=== PATIENT | female | born 1965 | race Caucasian/White ===

== ENCOUNTER 2023-07-20 06:26 | Outpatient (OUT) | payer BC, SELFPAY ==
[2023-07-20 07:18] LABS: Estimated Average Glucose 117 mg/dL; Glycohemoglobin A1C 5.7 % (4.5-6.2)
[2023-07-20 07:31] LABS: Glucose 108 mg/dL (74-106); Thyroid Stimulating Hormone 3.085 uIU/mL (0.358-3.740)
[2023-07-21 10:13] LABS: Insulin 14.6 uIU/mL (2.6-24.9)
== END 2023-07-20 06:27 | disposition home or self-care (01) ==
LOC: LAB 06:30
PROVIDERS: PCP Internal Medicine; Visit Provider Internal Medicine
DX: E16.2 Hypoglycemia, unspecified (principal); R53.83 Other fatigue; R73.01 Impaired fasting glucose
CPT/HCPCS: 36415; 82947; 83036; 83525; 84443

== ENCOUNTER 2024-09-12 12:45 | Outpatient (OUT) | payer BC, SELFPAY ==
--- OUTSIDE RECORDS SUMMARY | 2024-09-12 12:55 | XMS_ITS | CCD ---
Author Organization [facility] Care Team Providers Care Miniature Set Builder Name Role Phone DO Sami Rosa Primary Care Provider [phone] MD Marko Lam Attending Provider MOE, DR SLATER Admitting Unavailable BALL, DR SLATER Attending Unavailable BALL, DR SLATER Primary Care Unavailable BALL, DR SLATER Consulting Unavailable BALL, DR SLATER Admitting Unavailable BALL, DR SLATER Attending Unavailable BALL, DR SLATER Primary Care Unavailable BALL, DR SLATER Consulting Unavailable BALL, DR SLATER Admitting Unavailable BALL, DR SLATER Attending Unavailable BALL, DR SLATER Primary Care Unavailable BALL, DR SLATER Consulting Unavailable Moe, Sami Unavailable DO Sami Rosa Primary Care Provider DO Sami Rosa Referring Provider [phone] Self, Referral Attending Provider Unavailable DO Sami Rosa Primary Care Provider Community, Outreach Attending Provider [phone] DO Sami Rosa Primary Care Provider Community, Outreach Attending Provider DO Sami Rosa Attending Provider [phone] Sami Rosa MD Primary Care Provider DO Sami Rosa Primary Care Provider DO Pan Granados Attending Provider [phone] HOLGER Patel Attending Provider [phone] NO, PCP Referring Unavailable Lauryn Patel Admitting Unavailable Lauryn Patel Attending Unavailable Moe, Sami Primary Care Unavailable Moe, Sami Primary Care Unavailable Sami Rosa Attending Unavailable Moe, Sami Admitting Unavailable VisciPan Attending Unavailable Moe, Sami Primary Care Unavailable ViscPan blackwood Admitting Unavailable Moe, Sami Primary Care Unavailable Community, Outreach Admitting Unavailable Community, Outreach Attending Unavailable VISCPAN Blackwood Attending Unavailable VADIM STEPHENSON Attending Unavailable VADIM STEPHENSON Referring Unavailable DO Sami Rosa Primary Care Provider [phone] Medications Current Medications Medication Drug Class(es) Dates Sig (Normalized) Sig (Original) Azithromycin (12 sources) Macrolide Antimicrobial Start: 08-03-2024 Azithromycin Active 0 PO daily 6 August 03, 2024 12:00am Take 2 on day 1 and then take 1 for the next 4 days (days 2-5) Start: 12-07-2023 End: 12-23-2023 Azithromycin Discontinued 25 0 MG PO daily 6 December 06, 2023 11:00pm December 23, 2023 12:17pm Take 2 tablets day one and then 1 for the next 4 days benzonatate 200 mg oral capsule (1 source) Non-narcotic Antitussive Start: 08-03-2024 take 200 mg by mouth three times daily Benzonatate Active 200 MG PO Three times daily 27 07August 03, 2024 12:00am doxycycline hyclate 100 mg oral capsule (19 sources) Tetracycline-class Drug Start: 12-08-2022 take 1 capsule by mouth every twelve hours Doxycycline Hyclate 100 MG 1 capsule Orally Twice a day for 7 days Aug, Active Esomeprazole (20 sources) Proton Pump Inhibitor Start: 02-16-2024 Esomeprazole Magnesium Active 0 .ROUTE .COMPLEX February 16, 2024 11:59am TAKE 1 CAPSULE DAILY ON AN EMPTY STOMACH FOLLOWED IN 30 MINUTES BY BREAKFAST Start: 02-16-2024 Esomeprazole M agnesium Active 0 .ROUTE .COMPLEX February 16, 2024 12:59pm TAKE 1 CAPSULE DAILY ON AN EMPTY STOMACH FOLLOWED IN 30 MINUTES BY BREAKFAST Start: 05-13-2022 End: 02-16-2024 take 40 mg by mouth once daily Esomeprazole Magnesium Discontinued 40 MG PO Daily May 12, 2022 11:00pm February 16, 2024 11:59am take 1 capsule by mo uth before mealtime esomeprazole (NexIUM) [address] capsule Take 20 mg by mouth in the morning. Take before meals. Do not open capsule.. 0 Active losartan potassium 50 mg oral tablet (20 sources) Angiotensin 2 Receptor Genia Start: 12-16-2023 End: 03-15-2024 Losartan Active 0 .ROUTE .COMPLEX March 154 6:00am TAKE 1 TABLET DAILY Start: 05-13-2022 End: 12-16-2023 take 50 mg by mouth once daily Losartan Discontinued 5 0 MG PO Daily May 12, 2022 11:00pm December 16, 2023 12:07pm paxlovid (300/100) 20 x 150 mg & 10 x 100mg tablet therapy pack (2 sources) Start: 09-25-2023 Paxlovid (300/100) 20 x 150 MG & 10 x 100MG as directed Orally bid for 5 days Aug, Active pravastatin sodium 20 mg oral tablet (8 sources) HMG-CoA Reductase Inhibitor take 1 tablet by mouth every twenty-four hours Pravastatin Sodium 20 MG 1 tablet Orally Once a day Active triamcinolone acetonide 1 mg/ml topical cream (1 source) Corticosteroid Start: 04-27-2023 triamcinolone (Kenalog) 0.1 % cream Indications: Rash and other nonspecific skin eruption Apply thin layer to affected areas on the chest twice a day as needed for flares 30 g 1 04/27/2023 Active Completed/Discontinued Medications Medication Drug Class(es) Dates Sig (Normalized) Sig (Original) amLODIPine 2.5 mg oral tablet (20 sources) Dihydropyridine Calcium Channel Genia Start: 05-13-2022 End: 12-07-2023 take 2.5 mg by mouth once daily Amlodipine Discontinued 2.5 MG PO Daily May 12, 2022 11:00pm December 07, 2023 8:01am atorvastatin 20 mg oral tablet (15 sources) HMG-CoA Reductase Inhibitor Start: 05-13-2022 End: 12-07-2023 take 20 mg by mouth once daily Atorvastatin Discontinued 20 MG PO Daily May 12, 2022 11:00pm December 07, 2023 8:01am B-12 - up to 1000 mcg (20 sources) Start: 11-06-2023 B-12 - up to 1000 mcg Oct, 1000 mcg Start: 10-05-2023 B-12 - up to 1 000 mcg Sep, 1 mL Start: 08-26-2023 B-12 - up to 1 000 mcg Jul, 1 mL Start: 07-22-2023 B-12 - up to 1 000 mcg Jun, 1000 mcg Start: 06-19-2023 B-12 - up to 1 000 mcg May, 1000 mcg Start: 05-12-2023 B-12 - up to 1 000 mcg Apr, 1000 mcg Start: 04-09-2023 B-12 - up to 1 000 mcg Mar, 1000 mcg Start: 02-25-2023 B-12 - up to 1 000 mcg January, 1000 mcg Start: 01-19-2023 B-12 - up to 1 000 mcg Dec, 1000 mcg Start: 12-02-2022 B-12 - up to 1 000 mcg Nov, 1000 mcg Start: 11-03-2022 B-12 - up to 1 000 mcg Oct, 1000 mcg Start: 09-30-2022 B-12 - up to 1 000 mcg Sep, 1000 mcg cefuroxime 500 mg oral tablet (18 sources) Cephalosporin Antibacterial Start: 10-09-2022 take 1 tablet by mouth every twelve hours Cefuroxime Axetil 500 MG 1 tablet Orally every 12 hrs for 7 days Sep, Not-Taking/PRN estradiol 0.5 mg oral tablet (11 sources) Estrogen Start: 12-07-2023 End: 08-03-2024 take 1 mg by mouth once daily Estradiol Discontinued 1 MG PO Daily December 06, 2023 11:00pm August 03, 2024 3:08pm mupirocin 0.02 mg/mg topical ointment (14 sources) RNA Synthetase Inhibitor Antibacterial Start: 12-07-2023 End: 12-07-2023 Mupirocin Discontinued 1 APPLIC TOPICAL Twice daily December 06, 2023 11:00pm December 07, 2023 1:00pm Start: 09-17-2023 Mupirocin 2 % 1 application Externally Twice a day for 7 days Aug, Active Problems Active Problems Problem Classification Problem Date Documented Date Episodic/Chronic Acute bronchitis (4 sources) Acute bronchitis due to other specified organisms; Translations: [Acute bronchitis] Onset: 02-11-2016 Episodic Asthma (20 sources) Exacerbation of mild persistent asthma; Translations: [Mild intermittent asthma with (acute) exacerbation] Chronic Cardiac dysrhythmias (1 source) Supraventricular tachycardia; Translations: [Supraventricular tachycardia] Chronic Chronic obstructive pulmonary disease and bronchiectasis (8 sources) Chronic bronchitis; Translations: [Unspecified chronic bronchitis] 05-30-2024 Chronic Chronic obstructive pulmonary disease and bronchiectasis (13 sources) Bronchitis; Translations: [Bronchitis, not specified as acute or chronic] 12-07-2023 Episodic Deficiency and other anemia (20 sources) Pernicious anemia; Translations: [Vitamin B12 deficiency anemia due to intrinsic factor deficiency] 12-07-2023 Episodic Deficiency and other anemia (14 sources) Vitamin B12 deficiency anemia due to intrinsic factor deficiency; Translations: [Pernicious anemia] Episodic Diabetes mellitus without complication (1 source) Impaired fasting glucose Episodic Disorders of lipid metabolism (20 sources) Pure hypercholesterolemia, unspecified; Translations: [Pure hypercholesterolemia] Onset: 07-04-2022 Chronic Esophageal disorders (20 sources) Gastroesophageal reflux disease; Translations: [Gastro-esophageal reflux disease without esophagitis] 05-12-2022 Chronic Essential hypertension (20 sources) Essential hypertension; Translations: [Essential (primary) hypertension] Chronic Immunizations and screening for infectious disease (1 source) Encounter for immunization; Translations: [ENCOUNTER FOR IMMUNIZATION] Onset: 04-18-2022 Episodic Malaise and fatigue (1 source) Other fatigue Episodic Open wounds of extremities (1 source) Laceration without foreign body of unspecified finger without damage to nail, initial encounter Episodic Other circulatory disease (19 sources) H/O: cardiovascular disease; Translations: [Personal history of other diseases of the circulatory system] Episodic Other circulatory disease (5 sources) Personal history of other diseases of the circulatory system; Translations: [Personal history of other diseases of circulatory system] Episodic Other circulatory disease (1 source) Orthostatic hypotension Episodic Other circulatory disease (4 sources) History of paroxysmal supraventricular tachycardia; Translations: [Personal history of other diseases of the circulatory system] 05-30-2024 Episodic Other connective tissue disease (19 sources) Spasm; Translations: [Cramp and spasm] Episodic Other connective tissue disease (7 sources) Swelling of right lower limb; Translations: [Other specified soft tissue disorders] 12-23-2023 Episodic Other connective tissue disease (7 sources) Pain in calf; Translations: [Pain in unspecified lower leg] 12-23-2023 Episodic Other connective tissue disease (6 sources) Pain in unspecified lower leg; Translations: [Pain in limb] Onset: 12-23-2023 4 Episodic Other connective tissue disease (5 sources) Other specified soft tissue disorders; Translations: [Swelling of limb] 12-23-2023 Episodic Other connective tissue disease (6 sources) Foot pain; Translations: [Pain in right foot] 12-23-2023 Episodic Other connective tissue disease (4 sources) Pain in right foot; Translations: [Pain in limb] 12-23-2023 Episodic Other endocrine disorders (6 sources) Hypoglycemia; Translations: [Hypoglycemia, unspecified] Chronic Other endocrine disorders (1 source) Hypoglycemia, unspecified Chronic Other hematologic conditions (20 sources) Macrocytosis - no anemia; Translations: [Other specified diseases of blood and blood-forming organs] 12-07-2023 Chronic Other hematologic conditions (1 source) Other specified diseases of blood and blood-forming organs; Translations: [Disease of blood AND/OR blood-forming organ] Chronic Other nervous system disorders (20 sources) Paresthesia; Translations: [Paresthesia of skin] 12-07-2023 Episodic Other nutritional; endocrine; and metabolic disorders (1 source) Obesity; Translations: [Obesity, unspecified] Onset: 07-04-2014 Chronic Other screening for suspected conditions (not mental disorders or infectious disease) (8 sources) Patient encounter status; Translations: [Encounter for screening mammogram for malignant neoplasm of breast] 05-30-2024 Episodic Other skin disorders (7 sources) Warm skin; Translations: [Other skin changes] 12-23-2023 Episodic Other skin disorders (6 sources) Other skin changes; Translations: [Other symptoms involving skin and integumentary tissues] Onset: 12-23-2023 12-23-2023 Episodic Other upper respiratory infections (4 sources) Acute maxillary sinusitis, unspecified; Translations: [Acute pharyngitis] Onset: 08-21-2014 Episodic Residual codes; unclassified (19 sources) Tobacco user; Translations: [Tobacco use] Episodic Skin and subcutaneous tissue infections (1 source) Cellulitis of right finger Episodic Substance-related disorders (20 sources) Tobacco user; Translations: [Nicotine dependence, cigarettes, uncomplicated] Onset: 06-13-2013 Chronic Unclassified (1 source) Encounter for screening mammogram for malignant neoplasm of breast; Translations: [Encounter for screening mammogram for malignant neoplasm of breast] Onset: 11-26-2023 Unclassified (1 source) Other forms of dyspnea; Translations: [Other forms of dyspnea] Onset: 08-13-2023 Past or Other Problems Problem Classification Problem Date Documented Date Episodic/Chronic Abdominal pain (1 source) Epigastric pain; Translations: [Epigastric pain] Onset: 11-03-2017 Episodic Esophageal disorders (10 sources) Esophageal disorders; Translations: [Gastroesophageal reflux disease with esophagitis without hemorrhage] Nonspecific chest pain (2 sources) Chest pain; Translations: [Chest pain, unspecified] Resolved: 03-16-2022 Episodic Other connective tissue disease (1 source) Disorder of soft tissue; Translations: [Other specified soft tissue disorders] Onset: 09-17-2015 Episodic Other connective tissue disease (1 source) Pain in limb; Translations: [Pain in right lower leg] Onset: 09-17-2015 Episodic Other lower respiratory disease (1 source) Dyspnea; Translations: [Other forms of dyspnea] Resolved: 03-16-2022 Episodic Other nutritional; endocrine; and metabolic disorders (1 source) Overweight; Translations: [Overweight] Onset: 08-06-2021 Resolved: 05-02-2022 Episodic Otitis media and related conditions (1 source) Acute secretory otitis media; Translations: [Other acute nonsuppurative otitis media, right ear] Onset: 07-10-2016 Episodic Poisoning by nonmedicinal substances (1 source) Toxic effect of venom; Translations: [Toxic effect of venom of bees, accidental (unintentional), initial encounter] Resolved: 04-18-2021 Episodic Viral infection (20 sources) COVID-19; Translations: [Disease caused by 2019-nCoV] Onset: 04-17-2022 Results Test Name Value Interpretation Reference Range Facility US venous duplex LE RTon US venous duplex LE RT [facility] [place] [address] Ultrasound Report Signed Patient: Connie Cee MR#: [id number] 3 : 1965 Acct:[id number] Age/Sex: 58 / F ADM Date: 12/23/23 Loc: Room: Type: [facility] Attending Dr: Lauryn Patel APRN, [employer] SUPERVISOR-C Ordering Provider: Lauryn Patel APRN, PARBOILER Date of Service: 12/23/23 US/US venous duplex LE RT: R23.8 - Other skin changes Copies to: Lauryn Patel APRN, CONTRERAS RIGHT LOWER EXTREMITY VENOUS DUPLEX INDICATION: Right leg pain Unilateral right lower extremity venous duplex Doppler study was obtained utilizing B-mode, color- flow and spectral Doppler. FINDINGS: The right common femoral, femoral, and popliteal veins showed adequate compressibility, color-flow and augmentation. The right posterior tibial and peroneal veins were compressible, as w ell as proximal greater saphenous vein. The contralateral left common femoral vein was compressible with color-flow and augmentation. US/US venous duplex LE RT IMPRESSION: NO EVIDENCE OF DEEP VENOUS THROMBOSIS IN THE RIGHT LOWER EXTREMITY. NO SUPERFICIAL THROMBOPHLEBITIS WAS NOTED. Impression dictated by: Dexter Rios M.D.12/24/2023 10:20 AM Dictation Location: [place] [address] Tech: Natty Alarcon Transcribed By: CONNER 12/24/23 1020 Dictated By: Dexter Rios MD 12/24/23 1017 Signed By: 12/24/23 1020 [facility] MM screening mammo BI w/CADo n 11-26-2023 MM screening mammo BI w/CAD [facility] [place] [address] Mammography Report Signed Patient: Connie Cee MR#: [id number] 3 : 1965 Acct:[id number] Age/Sex: 58 / F ADM Date: 11/26/23 Loc: [place] Room: Type: [facility] Attending Dr: Pan Granados DO Copies to: DO Pan Parks DO Ordering Provider: Pan Granados DO Date of Service: 11/26/23 MM/MM screening mammo BI w/CAD: Z12.31 CLINICAL DATA: Screening for malignancy. BILATERAL SCREENING MAMMOGRAMS - FULL FIELD DIGITAL WITH TOMOSYNTHESIS AND CAD Tomosynthesis craniocaudal and mediolateral oblique views of both breasts were obtained using low- dose digital technique. Comparison is made to prior studies from 11/25/2022, 11/12/2021, 05/29/2020, and 02/14/2019. This examination was reviewed with the aid of CAD. There are scattered fibroglandular densities. Benign-appearing lymph nodes are noted along the chest wall. There are a few punctate benign-appearing calcifications. There are no dominant masses, typically malignant calcifications or architectural distortion. There has been no significant interval change. MM/MM screening mammo BI w/CAD IMPRESSION: NO MAMMOGRAPHIC EVIDENCE OF MALIGNANCY. ROUTINE FOLLOW-UP IS RECOMMENDED IN ONE YEAR. RESULT CODE: 2 Benign Findings(s) DENSITY CODE: 2 (approximately 25-50% glandular) FOLLOW UP: 1YR The false-negative rate of mammography is approximately 10-percent. Management of a palpable abnormality must be based on clinical grounds. Patient was entered into a reminder system with a target due date for the next mammogram. Impression dictated by: Viral Montoya M.D.11/26/2023 11:53 AM Dictation Location: [facility] Transcribed By: CONNER 11/26/23 1153 Dictated By: Viral Montoya II, MD 11/26/23 1147 Signed By: 11/26/23 1153 Normal [facility] CT angio chest PE protocolon 08-13-2023 CT angio chest PE protocol [facility] [place] [address] CT Scan Report Signed Patient: Connie Cee MR#: [id number] 3 : 1965 Acct:[id number] Age/Sex: 58 / F ADM Date: 08/13/23 Loc: CT Room: Type: [facility] Attending Dr: Sami Rosa DO Copies to: Sami Rosa DO Ordering Provider: Sami Rosa DO Date of Service: 08/13/23 CT/CT angio chest PE protocol: R07.2, R06.09, Z72.0 CT ANGIOGRAM OF THE CHEST, PULMONARY EMBOLISM PROTOCOL: CLINICAL INFORMATION: Chest pain. COMPARISON: None TECHNIQUE: Following intravenous injection of contrast CT scans of the chest were obtained using pulmonary embolism protocol. Coronal and sagittal reconstructed images, as well as volume rendered CT pulmonary angiographic images were also submitted.The CT exam was performed using one or more of the following dose reduction techniques: Automated exposure control, adjustment of the MA and/or Kv according to patient size, or use of the iterative reconstruction technique. FINDINGS: Pulmonary Vasculature: Contrast bolus is adequate for evaluation of pulmonary embolism. Pulmonary trunk appears nondilated. No filling defects are identified to suggest pulmonary embolism. Mediastinum : Thoracic aorta is normal in caliber. No pericardial effusion. No lymphadenopathy. The esophagus is grossly unremarkable. Lungs: No focal consolidation, pneumothorax or pleural effusion. A few tree-in-bud/subpleura l nodules are noted likely related to postinflammatory/bron chiolitis changes. No suspicious pulmonary nodules noted. Upper abdomen: No acute findings Soft tissue/bones: Soft tissues surrounding the chest wall demonstrate no acute findings. Osseous structures demonstrate degenerative change. CT/CT angio chest PE protocol IMPRESSION: NO EVIDENCE OF ACUTE PULMONARY EMBOLISM OR PROCESS. Impression dictated by: Salazar Lee Jr., D.O.08/13/2023 1:51 PM Dictation Location: [place] [address] Transcribed By: [facility] 08/13/23 1351 Dictated By: Salazar Lee Jr, DO 08/13/23 1348 Signed By: 08/13/23 1351 Normal [facility] Alanine aminotransferase [En zymatic activity/volume] in Serum or PlasmaOrdered By: OUTREACH COMMUNITY on 07-04-2023 ALT [Catalytic activity/Vol] 29 U/L 7-52 [facility] Albumin [Mass/volume] in Ser um or Plasma by Bromocresol green (BCG) dye binding methoOrdered By: OUTREACH COMMUNITY on 07-04-2023 Albumin BCG dye [Mass/Vol] 4.6 g/dL 3.5-5.7 [facility] Alkaline phosphatase [Enzyma tic activity/volume] in Serum or PlasmaOrdered By: OUTREACH COMMUNITY on 07-04-2023 ALP [Catalytic activity/Vol] 82 U/L 34-104 [facility] Aspartate aminotransferase [ Enzymatic activity/volume] in Serum or PlasmaOrdered By: OUTREACH COMMUNITY on 07-04-2023 AST [Catalytic activity/Vol] 19 U/L 13-39 [facility] Bilirubin.total [Mass/volume ] in Serum or PlasmaOrdered By: OUTREACH COMMUNITY on 07-04-2023 Bilirubin [Mass/Vol] 0.4 mg/dL 0.3-1.0 [facility] CBC Without Differentialon 1 Erythrocyte distribution width (RBC) [Ratio] 13.7 % Normal 11.9-15.3 [facility] Comment on above: Performed By: #### C BCNOOUTREACH, OUTREACH CMP, OUTREACH LIPID #### [facility] [address] Hematocrit (Bld) [Volume fraction] 39.7 % Normal 34.0-46.4 [facility] Comment on above: Performed By: #### C BCNOOUTREACH, OUTREACH CMP, OUTREACH LIPID #### [facility] [address] Hemoglobin (Bld) [Mass/Vol] 13.1 g/dL Normal 11.8-15.4 [facility] Comment on above: Performed By: #### C BCNOOUTREACH, OUTREACH CMP, OUTREACH LIPID #### [address] MCH (RBC) [Entitic mass] 32.0 pg Normal 24.7-34.3 [facility] Comment on above: Performed By: #### C BCNOOUTREACH, OUTREACH CMP, OUTREACH LIPID #### [address] MCV (RBC) [Entitic vol] 96.9 fL Normal 80-100 [facility] Comment on above: Performed By: #### C BCNOOUTREACH, OUTREACH CMP, OUTREACH LIPID #### [address] Mean Corpuscular HGB Conc 33.1 g/dL Normal 32.0-35.0 [facility] Comment on above: Performed By: #### C BCNOOUTREACH, OUTREACH CMP, OUTREACH LIPID #### [address] Platelet mean volume (Bld) [Entitic vol] 8.3 fL Normal 6.3-10.7 [facility] Comment on above: Result Comment: PERF ORMED BY: [place] [address] PATHOLOGIST PAYROLL LEAD ANAT GÓMEZ M.D. Performed By: #### C BCNOOUTREACH, OUTREACH CMP, OUTREACH LIPID #### [facility] [address] Platelets (Bld) [#/Vol] 283 10*3/uL Normal 150-450 [facility] Comment on above: Performed By: #### C BCNOOUTREACH, OUTREACH CMP, OUTREACH LIPID #### [facility] [address] RBC (Bld) [#/Vol] 4.10 10*6/uL Normal 3.60-5.00 [facility] Comment on above: Performed By: #### C BCNOOUTREACH, OUTREACH CMP, OUTREACH LIPID #### [facility] [address] WBC (Bld) [#/Vol] 6.7 10*3/uL Normal 3.8-11.6 [facility] Comment on above: Performed By: #### C BCNOOUTREACH, OUTREACH CMP, OUTREACH LIPID #### [facility] [address] CMP Outreachon 07-04-2023 Albumin [Mass/Vol] 4.6 g/dL Normal 3.5-5.7 [facility] Comment on above: Performed By: #### C BCNOOUTREACH, OUTREACH CMP, OUTREACH LIPID #### [facility] [address] ALP [Catalytic activity/Vol] 82 U/L Normal 34-104 [facility] Comment on above: Performed By: #### C BCNOOUTREACH, OUTREACH CMP, OUTREACH LIPID #### [facility] [address] ALT [Catalytic activity/Vol] 29 U/L Normal 7-52 [facility] Comment on above: Performed By: #### C BCNOOUTREACH, OUTREACH CMP, OUTREACH LIPID #### [facility] [address] Anion gap [Moles/Vol] 12.0 mmol/L Normal 6.0-15.0 [facility] Comment on above: Performed By: #### C BCNOOUTREACH, OUTREACH CMP, OUTREACH LIPID #### [facility] [address] [place] [address] [place] AST [Catalytic activity/Vol] 19 U/L Normal 13-39 [facility] Comment on above: Performed By: #### C BCNOOUTREACH, OUTREACH CMP, OUTREACH LIPID #### [facility] [address] [place] [address] [place] Bilirubin [Mass/Vol] 0.4 mg/dL Normal 0.3-1.0 [facility] Comment on above: Performed By: #### C BCNOOUTREACH, OUTREACH CMP, OUTREACH LIPID #### [facility] [address] [place] [address] [place] Calcium [Mass/Vol] 10.0 mg/dL Normal 8.6-10.3 [facility] Comment on above: Performed By: #### C BCNOOUTREACH, OUTREACH CMP, OUTREACH LIPID #### [facility] [address] [place] [address] [place] Chloride [Moles/Vol] 102 mmol/L Normal 98-107 [facility] Comment on above: Performed By: #### C BCNOOUTREACH, OUTREACH CMP, OUTREACH LIPID #### [facility] [address] [place] [address] [place] CO2 [Moles/Vol] 30.3 mmol/L Normal 21.0-31.0 [facility] Comment on above: Performed By: #### C BCNOOUTREACH, OUTREACH CMP, OUTREACH LIPID #### [facility] [address] [place] [address] [place] Creatinine [Mass/Vol] 0.68 mg/dL Normal 0.60-1.20 [facility] Comment on above: Performed By: #### C BCNOOUTREACH, OUTREACH CMP, OUTREACH LIPID #### [facility] [address] [place] [address] [place] GFR/1.73 sq M.predicted MDRD (S/P/Bld) [Vol rate/Area] mL/min/{1.73_m2} Normal [facility] Comment on above: Performed By: #### C BCNOOUTREACH, OUTREACH CMP, OUTREACH LIPID #### [facility] [address] [place] [address] [place] Glucose [Mass/Vol] 108 mg/dL High 70-100 [facility] Comment on above: Result Comment: [facility] Glucose Reference Range is dependent on time and content of last meal. Glucose of more than 200 mg/dL in a nonstressed, ambulatory subject supports the diagnosis of Diabetes Mellitus. ADA recommended reference range Performed By: #### C BCNOOUTREACH, OUTREACH CMP, OUTREACH LIPID #### [facility] [address] [place] [address] [place] Potassium [Moles/Vol] 4.3 mmol/L Normal 3.5-5.1 [facility] Comment on above: Performed By: #### C BCNOOUTREACH, OUTREACH CMP, OUTREACH LIPID #### [facility] [address] [place] [address] [place] Protein [Mass/Vol] 7.5 g/dL Normal 6.4-8.9 [facility] Comment on above: Performed By: #### C BCNOOUTREACH, OUTREACH CMP, OUTREACH LIPID #### [facility] [address] [place] [address] [place] Sodium [Moles/Vol] 140 mmol/L Normal 136-145 [facility] Comment on above: Performed By: #### C BCNOOUTREACH, OUTREACH CMP, OUTREACH LIPID #### [facility] [address] [place] [address] [place] Urea nitrogen [Mass/Vol] 14 mg/dL Normal 7-25 [facility] Comment on above: Performed By: #### C BCNOOUTREACH, OUTREACH CMP, OUTREACH LIPID #### [facility] [address] [place] [address] [place] Calcium [Mass/volume] in Ser um or PlasmaOrdered By: OUTREACH COMM[facility]ITY on 07-04-2023 Calcium [Mass/Vol] 10.0 mg/dL 8.6-10.3 [facility] Carbon dioxide, total [Moles /volume] in Serum or PlasmaOrdered By: OUTREACH COMMUNITY on 07-04-2023 CO2 [Moles/Vol] 30.3 mmol/L 21.0-31.0 [facility] Chloride [Moles/volume] in S kim or PlasmaOrdered By: OUTREACH COMMUNITY on 07-04-2023 Chloride [Moles/Vol] 102 mmol/L 98-107 [facility] Cholesterol [Mass/volume] in Serum or PlasmaOrdered By: OUTREACH COMM[facility]ITY on 07-04-2023 Cholesterol [Mass/Vol] 233 mg/dL 140-200 [facility] Comment on above: Chol less than 200 m g/dl low riskChol 201-239 mg/dl borderline riskChol 240 mg/dl and greater high risk Cholesterol in LDL Calc [Mas s/Vol]Ordered By: [facility]REACH [facility] on 07-04-2023 Cholesterol in LDL [Mass/Vol] 132 mg/dL 0-100 [facility] Comment on above: LDL ATP III CLASSIFI CATIONLDL less than 100 mg/dL OptimalLDL 100-129 mg/dL Near or above optimalLDL 130-159 mg/dL Borderline highLDL 160-189 mg/dL HighLDL greater than 189 mg/dL Very high Cholesterol in VLDL Calc [Ma ss/Vol]Ordered By: OUTREACH [facility] on 07-04-2023 Cholesterol in VLDL [Mass/Vol] 47 mg/dL [facility] Creatinine [Mass/volume] in Serum or PlasmaOrdered By: OUTREACH [facility] on 07-04-2023 Creatinine [Mass/Vol] 0.68 mg/dL 0.60-1.20 [facility] Erythrocyte distribution wid th Auto (RBC) [Ratio]Ordered By: [facility]REACH [facility] on 07-04-2023 Erythrocyte distribution width (RBC) [Ratio] 13.7 % 11.9-15.3 [facility] Glucose [Mass/volume] in Ser um or PlasmaOrdered By: OUTREACH COMM[facility]ITY on 07-04-2023 Glucose [Mass/Vol] 108 mg/dL 70-100 [facility] Comment on above: ADA recommended refe rence rangeRandom Glucose Reference Range is dependent on time and content of last meal. Glucose of more than 200 mg/dL in a nonstressed, ambulatory subject supports the diagnosis of Diabetes Mellitus. Hematocrit Auto (Bld) [Volum e fraction]Ordered By: OUTREACH [facility]ITY on 07-04-2023 Hematocrit (Bld) [Volume fraction] 39.7 % 34.0-46.4 [facility] Hemoglobin [Mass/volume] in BloodOrdered By: [facility] on 07-04-2023 Hemoglobin (Bld) [Mass/Vol] 13.1 g/dL 11.8-15.4 [facility] Leukocytes [#/volume] correc gigi for nucleated erythrocytes in Blood by Automated counOrdered By: [facility] on 07-04-2023 WBC corrected for nucl RBC Auto (Bld) [#/Vol] 6.7 10*3/uL 3.8-11.6 [facility] Lipid Profile [facility] Cholesterol [Mass/Vol] 233 mg/dL High 140-200 [facility] Comment on above: Result Comment: Chol less than 200 mg/dl low risk Chol 201-239 mg/dl borderline risk Chol 240 mg/dl and greater high risk Performed By: #### C BCNOOUTREACH, OUTREACH CMP, OUTREACH LIPID #### [facility] [address] Cholesterol in HDL [Mass/Vol] 53 mg/dL Normal 23-92 [facility] Comment on above: Result Comment: HDL CHOL ATP-III CLASSIFICATION Cardiovascular Risk HDL > or equal to 60 mg/dL LOW HDL < 40 mg/dL HIGH Performed By: #### C BCNOOUTREACH, OUTREACH CMP, OUTREACH LIPID #### [facility] [address] [place] [id number] [facility] Cholesterol.total/Choles terol in HDL [Mass ratio] 4.4 {ratio} Normal <5.0 [facility] Comment on above: Result Comment: PERF ORMED BY: [place] [address] PATHOLOGIST [employer] ANAT GÓMEZ M.D. Performed By: #### C BCNOOUTREACH, OUTREACH CMP, OUTREACH LIPID #### [facility] [address] [place] [id number] [facility] LDL Cholesterol,Calculated 132 mg/dL High 0-100 [facility] Comment on above: Result Comment: LDL ATP III CLASSIFICATION LDL less than 100 mg/dL Optimal LDL 100-129 mg/dL Near or above optimal LDL 130-159 mg/dL Borderline high LDL 160-189 mg/dL High LDL greater than 189 mg/dL Very high Performed By: #### C TERE, OUTREACH CMP, OUTREACH LIPID #### [facility] [address] Triglyceride w/Reflex 238 mg/dL High 0-149 [facility] Comment on above: Result Comment: TRIG ATP III CLASSIFICATION TRIG less than 150 mg/dL Normal TRIG 150-199 mg/dL Borderline high TRIG 200-500 mg/dL High TRIG greater than 500 mg/dL Very high Standard traceable to the Center for Disease Conrtrol and Prevention (CDC) test method. Performed By: #### C TERE, OUTREACH CMP, OUTREACH LIPID #### [facility] [address] VLDL CHOLESTEROL 47 mg/dL Normal [facility] Comment on above: Performed By: #### C TERE, OUTREACH CMP, OUTREACH LIPID #### [facility] [address] MCH Auto (RBC) [Entitic mass ]Ordered By: [facility] on 07-04-2023 MCH (RBC) [Entitic mass] 32.0 pg 24.7-34.3 [facility] MCHC Auto (RBC) [Mass/Vol]Or dered By: [facility] on 07-04-2023 MCHC (RBC) [Mass/Vol] 33.1 g/dL 32.0-35.0 [facility] MCV Auto (RBC) [Entitic vol] Ordered By: [facility] on 07-04-2023 MCV (RBC) [Entitic vol] 96.9 fL 80-100 [facility] No Panel InformationOrdered By: [facility] on 07-04-2023 Estimated GFR (CKD-EPI) > 60.0 mL/Min [facility] Creatinine Clearance (Chem N/A [facility] Platelet mean volume Auto (B ld) [Entitic vol]Ordered By: [facility] on 07-04-2023 Platelet mean volume (Bld) [Entitic vol] 8.3 fL 6.3-10.7 [facility] Platelets Auto (Bld) [#/Vol] Ordered By: [facility] on 07-04-2023 Platelets (Bld) [#/Vol] 283 10*3/uL 150-450 [facility] Potassium [Moles/volume] in Serum or PlasmaOrdered By: [facility]REACH [facility] on 07-04-2023 Potassium [Moles/Vol] 4.3 mmol/L 3.5-5.1 [facility] Protein [Mass/volume] in Ser um or PlasmaOrdered By: OUTREACH [facility] on 07-04-2023 Protein [Mass/Vol] 7.5 g/dL 6.4-8.9 [facility] RBC Auto (Bld) [#/Vol]Ordere d By: OUTREACH [facility] on 07-04-2023 RBC (Bld) [#/Vol] 4.10 10*6/uL 3.60-5.00 [facility] Serum or plasma anion gap de terminationOrdered By: OUTREACH COMMUNITY on 07-04-2023 Anion gap [Moles/Vol] 12.0 mmol/L 6.0-15.0 [facility] Serum or plasma high density lipoprotein (HDL) cholesterol measurementOrdered By: OUTREACH [facility] on 07-04-2023 Cholesterol in HDL [Mass/Vol] 53 mg/dL 23-92 [facility] Comment on above: HDL CHOL ATP-III CLA SSIFICATION Cardiovascular RiskHDL > or equal to 60 mg/dL LOWHDL < 40 mg/dL HIGH Serum or plasma total choles terol/high density lipoprotein (HDL) cholesterol mass ratOrdered By: OUTREACH [facility] on 07-04-2023 Cholesterol.total/Choles terol in HDL [Mass ratio] 4.4 {ratio} <5.0 [facility] Sodium [Moles/volume] in Ser um or PlasmaOrdered By: OUTREACH [facility] on 07-04-2023 Sodium [Moles/Vol] 140 mmol/L 136-145 [facility] Triglyceride [Mass/volume] i n Serum or PlasmaOrdered By: OUTREACH COMMUNITY on 07-04-2023 Triglyceride [Mass/Vol] 238 mg/dL 0-149 [facility] Comment on above: TRIG ATP III CLASSIF ICATIONTRIG less than 150 mg/dL NormalTRIG 150-199 mg/dL Borderline highTRIG 200-500 mg/dL High TRIG greater than 500 mg/dL Very highStandard traceable to the Center for Disease Conrtrol and Prevention (CDC) test method. Urea nitrogen [Mass/volume] in Serum or PlasmaOrdered By: OUTREACH COMMUNITY on 07-04-2023 Urea nitrogen [Mass/Vol] 14 mg/dL 7-25 [facility] DIRECT LDLon 07-04-2022 Cholesterol in LDL [Mass/Vol] 112 mg/dL Normal [facility] Comment on above: Performed By: #### D LDL, ALT #### [facility] [address] [place] [address] [address] Netta Judd DLDL NORMAL SEE BELOW Normal [facility] Comment on above: Result Comment: <100 mg/dl OPTIMAL 100 - 129 mg/dl NEAR OR ABOVE OPTIMAL 130 - 159 mg/dl BORDERLINE HIGH 160 - 189 mg/dl HIGH >190 mg/dl VERY HIGH Performed By: #### D LDL, ALT #### [facility] [address] [place] [address] [address] Netta Judd SGPTon 07-04-2022 ALT [Catalytic activity/Vol] 36 U/L Normal 14-59 [facility] Comment on above: Performed By: #### D LDL, ALT #### [facility] [address] [place] [address] Dr. Netta Judd COVID-19 Positive/NegativeOr dered By: Marko Lam on 05-09-2022 SARS-CoV-2 (COVID-19) N gene RADU+probe Ql (Resp) Negative Negative [facility] Comment on above: Testing for SARS-CoV -2 by RT-PCR This test was developed and its performance characteristics determined by [employer] and validated at the [facility]. This test has not been FDA cleared or approved. This test has been authorized by FDA under an Emergency Use Authorization (EUA). This test has been validated in accordance with the FDA's Guidance Document (Policy for Diagnostics Testing in Laboratories Certified to Perform High Complexity Testing under CLIA prior to Emergency Use Authorization for Coronavirus Disease-2019 during the Public Health Emergency) issued on December 29, 2019. This test is only authorized for the duration of time the declaration that circumstances exist justifying the authorization of the emergency use of in vitro diagnostic tests for detection of SARS-CoV-2 virus and/or diagnosis of COVID-19 infection under section 564(b)(1) of the Act, 21 U.S.C. 360bbb-3(b)(1), unless the authorization is terminated or revoked sooner. CBC AUTO DIFFon 05-02-2022 BASO # 0.0 103/ul Normal 0.0-0.1 [facility] Comment on above: Performed By: #### C BC #### [facility] [address] [place] [address] Dr. Netta Judd Basophils/100 WBC (Bld) 0.6 % Normal 0.2-2.0 [facility] Comment on above: Performed By: #### C BC #### [facility] [address] [place] [address] Dr. Netta Judd EO # 0.2 103/ul Normal 0.0-0.7 [facility] Comment on above: Performed By: #### C BC #### [facility] [address] [place] [address] Dr. Netta Judd Eosinophils/100 WBC (Bld) 3.1 % Normal 0.9-7.0 [facility] Comment on above: Performed By: #### C BC #### [facility] [address] [place] [address] Dr. Netta Judd Erythrocyte distribution width (RBC) [Ratio] 13.6 % Normal 11.0-15.0 [facility] Comment on above: Performed By: #### C BC #### [facility] [address] [place] [address] Dr. Netta Judd Hematocrit (Bld) [Volume fraction] 39.3 % Normal 36.0-48.0 [facility] Comment on above: Performed By: #### C BC #### [facility] [address] [place] [address] Dr. Netta Judd Hemoglobin (Bld) [Mass/Vol] 12.8 g/dL Normal 12.0-16.0 [facility] Comment on above: Performed By: #### C BC #### [facility] [address] [place] [address] Dr. Netta Judd IG # 0.03 10e3/ul Normal 0.00-0.03 [facility] Comment on above: Performed By: #### C BC #### [facility] [address] [place] [address] Dr. Netta Judd IG % 0.5 % Normal 0.0-0.5 [facility] Comment on above: Performed By: #### C BC #### [facility] [address] [place] [address] Dr. Netta Judd LYMPH # 2.0 103/ul Normal 1.2-3.8 [facility] Comment on above: Performed By: #### C BC #### [facility] [address] [place] [address] Dr. Netta Judd Lymphocytes/100 WBC (Bld) 32.7 % Normal 20.5-60.0 [facility] Comment on above: Performed By: #### C BC #### [facility] [address] [place] [address] Dr. Netta Judd MANUAL DIFF REQ NO Normal [facility] Comment on above: Performed By: #### C BC #### [facility] [address] [place] [address] Dr. Netta Judd MCH (RBC) [Entitic mass] 31.8 pg Normal 26.7-34.0 [facility] Comment on above: Performed By: #### C BC #### [facility] [address] [place] [address] Dr. Netta Judd MCHC (RBC) [Mass/Vol] 32.6 g/dL Normal 29.9-35.2 [facility] Comment on above: Performed By: #### C BC #### [facility] [address] [place] [address] Dr. Netta Judd MCV (RBC) [Entitic vol] 97.5 fL Normal 81.0-99.0 [facility] Comment on above: Performed By: #### C BC #### [facility] [address] [place] [address] [address] Netta Judd MONO # 0.5 103/ul Normal 0.3-0.8 [facility] Comment on above: Performed By: #### C BC #### [facility] [address] [place] [address] Dr. Netta Judd Monocytes/100 WBC (Bld) 7.6 % Normal 1.7-12.0 [facility] Comment on above: Performed By: #### C BC #### [facility] [address] [place] [address] Dr. Netta Judd NEUT # 3.4 103/ul Normal 1.4-6.5 [facility] Comment on above: Performed By: #### C BC #### [facility] [address] [place] [address] Dr. Netta Judd Neutrophils/100 WBC (Bld) 55.5 % Normal 43.0-75.0 [facility] Comment on above: Performed By: #### C BC #### [facility] [address] [place] [address] Dr. Netta Judd Platelet mean volume (Bld) [Entitic vol] 9.7 fL Normal 9.5-13.5 [facility] Comment on above: Performed By: #### C BC #### [facility] [address] [place] [address] Dr. Netta Judd PLT 249 103/ul Normal 150-450 [facility] Comment on above: Performed By: #### C BC #### [facility] [address] [place] [address] Dr. Netta Judd RBC 4.03 106/ul Critically low 4.20-5.40 [facility] Comment on above: Performed By: #### C BC #### [facility] [address] [place] [address] Dr. Netta Judd WBC 6.2 103/ul Normal 4.0-11.0 [facility] Comment on above: Performed By: #### C BC #### [facility] [address] [place] [address] Dr. Netta Judd LIPID PROFILEon 05-02-2022 CHOL-HDL RATIO NORM SEE BELOW Normal [facility] Comment on above: Result Comment: 3.3 - 4.4 LOW RISK 4.4 - 7.1 AVERAGE RISK 7.1 - 11.0 MODERATE RISK >11.0 HIGH RISK Performed By: #### C MP, TSH, LIPID #### [facility] [address] [place] [address] [address] Netta Judd Cholesterol [Mass/Vol] 231 mg/dL Critically high <=200 [facility] Comment on above: Performed By: #### C MP, TSH, LIPID #### [facility] [address] [place] [address] [address] Netta Judd Cholesterol in HDL [Mass/Vol] 41 mg/dL Normal 40-60 [facility] Comment on above: Performed By: #### C MP, TSH, LIPID #### [facility] [address] [place] [address] [address] Netta Judd Cholesterol in LDL [Mass/Vol] 137.2 mg/dL Normal [facility] Comment on above: Performed By: #### C MP, TSH, LIPID #### [facility] [address] [place] [address] [address] Netta Judd Cholesterol.total/Choles terol in HDL [Mass ratio] 5.6 {ratio} Normal [facility] Comment on above: Performed By: #### C MP, TSH, LIPID #### [facility] [address] [place] [address] [address] Netta Judd HDL NORMAL > or = 60 mg/dl - LO W CARDIOVASCULAR RISK <40 mg/dl - HIGH CARDIOVASCULAR RISK Normal [facility] Comment on above: Performed By: #### C MP, TSH, LIPID #### [facility] [address] [address] [address] Netta Judd LDL CALC NORMAL SEE BELOW Normal [facility] Comment on above: Result Comment: <100 mg/dl OPTIMAL 100 - 129 mg/dl NEAR OR ABOVE OPTIMAL 130 - 159 mg/dl BORDERLINE HIGH 160 - 189 mg/dl HIGH >190 mg/dl VERY HIGH Performed By: #### C MP, TSH, LIPID #### [facility] [address] [place] [address] Dr. Netta Judd Triglyceride [Mass/Vol] 264 mg/dL Critically high <=150 [facility] Comment on above: Performed By: #### C MP, TSH, LIPID #### [facility] [address] [place] [address] Dr. Netta Judd VLDL CALC 52.8 mg/dL Normal [facility] Comment on above: Performed By: #### C MP, TSH, LIPID #### [facility] [address] [place] [address] Dr. Netta Judd PROF 14(COMP METB)on 022 Albumin [Mass/Vol] 3.6 g/dL Normal 3.4-5.[address] [facility] Comment on above: Performed By: #### C MP, TSH, LIPID #### [facility] [address] [place] [address] Dr. Netta Judd Albumin/Globulin [Mass ratio] 1.0 {ratio} Normal [facility] Comment on above: Performed By: #### C MP, TSH, LIPID #### [facility] [address] [place] [address] Dr. Netta Judd ALP [Catalytic activity/Vol] 83 U/L Normal 46-116 [facility] Comment on above: Performed By: #### C MP, TSH, LIPID #### [facility] [address] [place] [address] Dr. Netta Judd ALT [Catalytic activity/Vol] 51 U/L Normal 14-59 [facility] Comment on above: Performed By: #### C MP, TSH, LIPID #### [facility] [address] [place] [address] Dr. Netta Judd Anion gap [Moles/Vol] 13.4 mmol/L Normal [facility] Comment on above: Performed By: #### C MP, TSH, LIPID #### [facility] [address] [place] [address] Dr. Netta Judd AST [Catalytic activity/Vol] 22 U/L Normal 15-37 [facility] Comment on above: Performed By: #### C MP, TSH, LIPID #### [facility] [address] [address] [address] Netta Judd Bilirubin [Mass/Vol] 0.3 mg/dL Normal 0.2-1.0 [facility] Comment on above: Performed By: #### C MP, TSH, LIPID #### [facility] [address] [address] [address] Netta Judd Calcium [Mass/Vol] 8.9 mg/dL Normal 8.5-10.[address] [facility] Comment on above: Performed By: #### C MP, TSH, LIPID #### [facility] [address] [address] [address] Netta Judd Chloride [Moles/Vol] 105 mmol/L Normal 98-107 [facility] Comment on above: Performed By: #### C MP, TSH, LIPID #### [facility] [address] [place] [address] Dr. Netta Judd CO2 [Moles/Vol] 29.5 mmol/L Normal 21.0-32.0 [facility] Comment on above: Performed By: #### C MP, TSH, LIPID #### [facility] [address] [place] [address] Dr. Netta Judd Creatinine [Mass/Vol] 0.68 mg/dL Normal 0.55-1.02 [facility] Comment on above: Performed By: #### C MP, TSH, LIPID #### [facility] [address] [place] [address] Dr. Netta Judd EGFR-AF NICARAGUAN >60 Normal >=60 [facility] Comment on above: Performed By: #### C MP, TSH, LIPID #### [facility] [address] [place] [address] Dr. Netta Judd EGFR-NON AF NICARAGUAN >60 Normal >=60 [facility] Comment on above: Performed By: #### C MP, TSH, LIPID #### [facility] [address] [place] [address] Dr. Netta Judd Globulin (S) [Mass/Vol] 3.5 g/dL Normal [facility] Comment on above: Performed By: #### C MP, TSH, LIPID #### [facility] [address] [place] [address] Dr. Netta Judd Glucose [Mass/Vol] 108 mg/dL Critically high 74-106 [facility] Comment on above: Performed By: #### C MP, TSH, LIPID #### [facility] [address] [place] [address] Dr. Netta Judd Potassium [Moles/Vol] 3.9 mmol/L Normal 3.5-5.1 [facility] Comment on above: Performed By: #### C MP, TSH, LIPID #### [facility] [address] [place] [address] Dr. Netta Judd Protein [Mass/Vol] 7.1 g/dL Normal 6.4-8.[address] [facility] Comment on above: Performed By: #### C MP, TSH, LIPID #### [facility] [address] [place] [address] Dr. Netta Judd Sodium [Moles/Vol] 144 mmol/L Normal 136-[address] [facility] Comment on above: Performed By: #### C MP, TSH, LIPID #### [facility] [address] [place] [address] Dr. Netta Judd Urea nitrogen [Mass/Vol] 13.0 mg/dL Normal 7.0-18.0 [facility] Comment on above: Performed By: #### C MP, TSH, LIPID #### [facility] [address] [place] [address] Dr. Netta Judd Urea nitrogen/Creatinine [Mass ratio] 19.1 mg/mg Normal [facility] Comment on above: Performed By: #### C MP, TSH, LIPID #### [facility] [address] [place] [address] Dr. Netta Judd TSHon 05-02-2022 TSH 1.683 uIU/mL Normal 0.358-3.740 [facility] Comment on above: Performed By: #### C MP, TSH, LIPID #### [facility] [address] [place] [address] Dr. Netta Judd Vital Signs Date Time Vital Sign Value Performing Clinician Facility 08-03-2024 15:02-0500 Body height 167.64 cm [facility] 08-03-2024 15:02-0500 Body mass index (BMI) [Ratio] 26.8 kg/m2 [facility] 08-03-2024 15:02-0500 Body temperature 98.1 [degF] [facility] 08-03-2024 15:02-0500 Body weight 75.35 kg [facility] 08-03-2024 15:02-0500 Diastolic blood pressure 100 mm[Hg] [facility] 08-03-2024 15:02-0500 Heart rate 124 /min [facility] 08-03-2024 15:02-0500 SaO2% (BldA) [Mass fraction] 96 % [facility] 08-03-2024 15:02-0500 Systolic blood pressure 144 mm[Hg] [facility] 06-24-2024 14:16-0400 Body height 167.64 cm [facility] 06-24-2024 14:16-0400 Body mass index (BMI) [Ratio] 26.4 kg/m2 [facility] 06-24-2024 14:16-0400 Body weight 74.38 kg [facility] 06-24-2024 14:16-0400 Diastolic blood pressure 96 mm[Hg] [facility] 06-24-2024 14:16-0400 Heart rate 93 /min [facility] 06-24-2024 14:16-0400 Systolic blood pressure 144 mm[Hg] [facility] 12-23-2023 13:17-0400 Body height 167.64 cm DO Sami Ball Work Phone: [facility] 12-23-2023 13:17-0400 Body mass index (BMI) [Ratio] 26.9 kg/m2 DO Sami Ball Work Phone: [facility] 12-23-2023 13:17-0400 Body weight 75.74 kg DO Sami Ball Work Phone: [facility] 12-07-2023 13:52-0400 Body height 167.64 cm DO Sami Ball Work Phone: [facility] 12-07-2023 13:52-0400 Body mass index (BMI) [Ratio] 27.1 kg/m2 DO Sami Ball Work Phone: [facility] 12-07-2023 13:52-0400 Body weight 76.2 kg DO Sami Ball Work Phone: [facility] 12-07-2023 13:52-0400 Diastolic blood pressure 100 mm[Hg] DO Sami Ball Work Phone: [facility] 12-07-2023 13:52-0400 Heart rate 117 /min DO Sami Ball Work Phone: [facility] 12-07-2023 13:52-0400 SaO2% (BldA) [Mass fraction] 97 % DO Sami Ball Work Phone: [facility] 12-07-2023 13:52-0400 Systolic blood pressure 172 mm[Hg] DO Sami Ball Work Phone: [facility] 09-17-2023 10:15-0500 Body height 167.64 cm Sami Ball Other [employer] Other 09-17-2023 10:15-0500 Body mass index (BMI) [Ratio] 26.63 kg/m2 Sami Ball Other [employer] Other 09-17-2023 10:15-0500 Body weight 74.84 kg Sami Ball Other [employer] Other 09-17-2023 10:15-0500 Diastolic blood pressure 89 mm[Hg] Sami Ball Other [employer] Other 09-17-2023 10:15-0500 Respiratory rate 12 /min Sami Ball Other [employer] Other 09-17-2023 10:15-0500 Systolic blood pressure 136 mm[Hg] Sami Ball Other [employer] Other 07-17-2023 10:15-0400 Body height 167.64 cm Sami Ball Other [employer] Other 07-17-2023 10:15-0400 Body mass index (BMI) [Ratio] 27.37 kg/m2 Sami Ball Other [employer] Other 07-17-2023 10:15-0400 Body weight 76.93 kg Sami Ball Other [employer] Other 07-17-2023 10:15-0400 Diastolic blood pressure 92 mm[Hg] Sami Ball Other [employer] Other 07-17-2023 10:15-0400 Respiratory rate 12 /min Sami Ball Other [employer] Other 07-17-2023 10:15-0400 Systolic blood pressure 139 mm[Hg] Sami Ball Other [employer] Other 05-28-2023 14:30-0400 Body height 167.64 cm Sami Ball Other [employer] Other 05-28-2023 14:30-0400 Body mass index (BMI) [Ratio] 27.44 kg/m2 Sami Ball Other [employer] Other 05-28-2023 14:30-0400 Body weight 77.11 kg Sami Ball Other [employer] Other 05-28-2023 14:30-0400 Diastolic blood pressure 92 mm[Hg] Sami Ball Other [employer] Other 05-28-2023 14:30-0400 Respiratory rate 12 /min Sami Ball Other [employer] Other 05-28-2023 14:30-0400 Systolic blood pressure 148 mm[Hg] Sami Ball Other [employer] Other 10-09-2022 16:00-0500 Body height 167.64 cm Sami Ball Other [employer] Other 10-09-2022 16:00-0500 Body mass index (BMI) [Ratio] 28.5 kg/m2 Sami Ball Other [employer] Other 10-09-2022 16:00-0500 Body weight 80.11 kg Saim Ball Other [employer] Other 10-09-2022 16:00-0500 Diastolic blood pressure 86 mm[Hg] Sami Ball Other [employer] Other 10-09-2022 16:00-0500 Respiratory rate 12 /min Sami Ball Other [employer] Other 10-09-2022 16:00-0500 Systolic blood pressure 142 mm[Hg] Sami Ball Other [employer] Other 05-13-2022 08:50-0400 Diastolic blood pressure 101 mm[Hg] DO Sami Ball Work Phone: [facility] 05-13-2022 08:50-0400 Heart rate 111 /min DO Sami Ball Work Phone: [facility] 05-13-2022 08:50-0400 Respiratory rate 18 /min DO Sami Ball Work Phone: [facility] 05-13-2022 08:50-0400 SaO2% (BldA) [Mass fraction] 100 % DO Sami Ball Work Phone: [facility] 05-13-2022 08:50-0400 Systolic blood pressure 142 mm[Hg] DO Sami Ball Work Phone: [facility] 05-13-2022 07:46-0400 Body height 165.1 cm DO Sami Ball Work Phone: [facility] 05-13-2022 07:46-0400 Body temperature 97.8 [degF] DO Sami Ball Work Phone: [facility] 05-13-2022 07:46-0400 Body weight 76.2 kg DO Sami Ball Work Phone: [facility] Encounters Encounter Date Encounter Type Care Provider Facility Start: 08-03-2024 End: 08-03-2024 ambulatory [facility] Work Phone: Start: 08-03-2024 End: 08-03-2024 Patient encounter procedure [facility] Work Phone: Start: 08-02-2024 End: 08-02-2024 ambulatory [facility] Work Phone: Start: 08-02-2024 End: 08-02-2024 Patient encounter procedure [facility] Work Phone: Start: 07-01-2024 End: 07-01-2024 ambulatory [facility] Work Phone: Start: 07-01-2024 End: 07-01-2024 Patient encounter procedure [facility] Work Phone: Start: 06-24-2024 End: 06-24-2024 ambulatory [facility] Work Phone: Start: 06-24-2024 End: 06-24-2024 Encounter for general adult medical examination without abnormal findings [facility] Start: 06-24-2024 End: 06-24-2024 Patient encounter procedure [facility] Work Phone: Start: 05-30-2024 Patient encounter status [facility] Start: 05-27-2024 End: 05-27-2024 ambulatory [facility] Work Phone: Start: 05-27-2024 End: 05-27-2024 Patient encounter procedure [facility] Work Phone: Start: 04-19-2024 End: 04-19-2024 ambulatory [facility] Work Phone: Start: 04-19-2024 End: 04-19-2024 Patient encounter procedure [facility] Work Phone: Start: 03-17-2024 End: 03-17-2024 ambulatory DO Sami Ball Work Phone: [facility] Work Phone: Start: 03-17-2024 End: 03-17-2024 Patient encounter procedure DO Sami Ball Work Phone: [facility] Work Phone: Start: 02-08-2024 End: 02-08-2024 ambulatory DO Sami Ball Work Phone: [facility] Work Phone: Start: 02-08-2024 End: 02-08-2024 Patient encounter procedure DO Sami Ball Work Phone: [facility] Work Phone: Start: 01-08-2024 End: 01-08-2024 ambulatory DO Sami Ball Work Phone: [facility] Work Phone: Start: 01-08-2024 End: 01-08-2024 Patient encounter procedure DO Sami Ball Work Phone: [facility] Work Phone: Start: 01-07-2024 End: 01-07-2024 ambulatory VADIM STEPHENSON Not Available Start: 12-24-2023 End: 12-25-2023 ambulatory PCP NO Imelda Binghamita guanako Start: 12-23-2023 End: 12-23-2023 ambulatory Lauryn Patel Facility:[facility] Start: 12-23-2023 End: 12-23-2023 ambulatory DO Sami Ball Work Phone: [facility] Work Phone: Start: 12-23-2023 End: 12-23-2023 Patient encounter procedure DO Sami Ball Work Phone: [facility] [place] Work Phone: Start: 12-23-2023 End: 12-23-2023 ambulatory DO Sami Ball Work Phone: [facility] Work Phone: Start: 12-23-2023 End: 12-23-2023 Patient encounter procedure DO Sami Ball Work Phone: [facility] Work Phone: Start: 12-07-2023 End: 12-07-2023 Patient encounter procedure DO Sami Ball Work Phone: [facility] Work Phone: Start: 11-26-2023 End: 11-26-2023 ambulatory Pan Visci Facility:[facility] Start: 11-26-2023 End: 11-26-2023 Patient encounter procedure DO Sami Ball Work Phone: [facility] Work Phone: Start: 11-06-2023 End: 11-06-2023 ambulatory Sami Rosa Other [employer] Other Start: 11-06-2023 Nursing evaluation o f patient and report Sami Rosa [facility] Start: 11-04-2023 End: 11-04-2023 ambulatory PAN A VISCI Not Available Start: 11-04-2023 Bamboo flowsheet Pan A Vis ci DO Work Phone: [facility] Start: 11-04-2023 Bamboo flowsheet Pan A Vis ci DO Work Phone: [facility] Start: 09-25-2023 End: 09-25-2023 ambulatory Sami Ball Other [employer] Other Start: 09-25-2023 Office outpatient vi sit 15 minutes Sami Ball [facility] Start: 09-25-2023 Patient encounter procedure DO Sami Ball Work Phone: [facility]- Start: 09-17-2023 End: 09-17-2023 ambulatory Sami Ball Other [employer] Other Start: 09-17-2023 Office outpatient vi sit 15 minutes Sami Ball [facility] Start: 08-26-2023 End: 08-26-2023 ambulatory Sami Ball Other [employer] Other Start: 08-26-2023 Nursing evaluation o f patient and report Sami Ball [facility] Start: 08-13-2023 End: 08-13-2023 ambulatory Sami Ball Facility:[facility] Start: 08-13-2023 End: 08-13-2023 ambulatory DO Sami Ball Work Phone: [facility] Work Phone: Start: 08-13-2023 End: 08-13-2023 Patient encounter procedure DO Sami Ball Work Phone: [facility] [place] Work Phone: Start: 07-22-2023 End: 07-22-2023 ambulatory Sami Ball Other [employer] Other Start: 07-22-2023 Nursing evaluation o f patient and report Sami Ball [facility] Start: 07-17-2023 End: 07-17-2023 ambulatory Sami Ball Other [employer] Other Start: 07-17-2023 Office outpatient vi sit 15 minutes Sami Rosa [facility] Start: 07-13-2023 End: 07-13-2023 ambulatory Sami Rosa Other [employer] Other Start: 07-13-2023 Telephone encounter Sami Rosa [facility] Start: 07-07-2023 End: 07-07-2023 ambulatory Sami Rosa Other [employer] Other Start: 07-07-2023 Telephone encounter Sami Rosa [facility] Start: 07-04-2023 End: 07-04-2023 ambulatory Sami Rosa Facility:[facility] Start: 07-04-2023 End: 07-04-2023 ambulatory DO Sami Ball Work Phone: [facility] Work Phone: Start: 07-04-2023 End: 07-04-2023 Departed Referred DO Sami Ball Work Phone: [facility] Work Phone: Start: 06-19-2023 End: 06-19-2023 ambulatory Sami Rosa Other [employer] Other Start: 06-19-2023 Nursing evaluation o f patient and report Sami Rosa [facility] Start: 05-28-2023 End: 05-28-2023 ambulatory Sami Rosa Other [employer] Other Start: 05-28-2023 Encounter for genera l adult medical examination without abnormal findings Sami Rosa [facility] Start: 05-28-2023 Periodic preventive med est patient 40-64yrs Sami Rosa [facility] Start: 05-12-2023 End: 05-12-2023 ambulatory Sami Rosa Other [employer] Other Start: 05-12-2023 Nursing evaluation o f patient and report Sami Rosa [facility] Start: 02-25-2023 End: 02-25-2023 ambulatory Sami Rosa Other [employer] Other Start: 02-25-2023 Nursing evaluation o f patient and report Sami Rosa [facility] Start: 02-23-2023 End: 02-23-2023 ambulatory Sami Rosa Other [employer] Other Start: 02-23-2023 Telephone encounter Sami MORENO [facility] Start: 12-15-2022 End: 12-15-2022 ambulatory Sami Rosa Other [employer] Other Start: 12-15-2022 Telephone encounter Sami Rosa [facility] Start: 12-08-2022 End: 12-08-2022 ambulatory Sami Rosa Other [employer] Other Start: 12-08-2022 Office outpatient vi sit 15 minutes Sami Rosa [facility] Start: 12-02-2022 End: 12-02-2022 ambulatory Sami Rosa Other [employer] Other Start: 12-02-2022 Nursing evaluation o f patient and report Sami Rosa [facility] Start: 11-25-2022 End: 11-25-2022 ambulatory DO Sami Rosa Work Phone: [facility] Work Phone: Start: 11-25-2022 End: 11-25-2022 Patient encounter procedure DO Sami Rosa Work Phone: [facility] Work Phone: Start: 10-09-2022 End: 10-09-2022 ambulatory Sami Rosa Other [employer] Other Start: 10-09-2022 Office outpatient vi sit 15 minutes Sami Rosa [facility] Start: 09-30-2022 End: 09-30-2022 ambulatory Sami Rosa Other [employer] Other Start: 09-30-2022 Nursing evaluation o f patient and report [facility]i [facility] Start: 07-04-2022 End: 07-05-[address] SAMI ROSA Facility:[facility] Start: 05-13-2022 End: 05-13-2022 Admission to same day surgery center DO Sami Rosa Work Phone: [facility] Start: 05-09-2022 End: 05-09-2022 Patient encounter procedure DO Sami Rosa Work Phone: [facility] Start: 05-06-2022 Encounter for genera l adult medical examination without abnormal findings DR SAMI ROSA [facility] Start: 05-02-2022 End: 05-03-[address] SAMI ROSA Facility:[facility] Start: 05-02-2022 End: 05-03-2022 Encounter for general adult medical examination without abnormal findings DR SAMI ROSA Facility:[facility] Start: 04-17-2022 End: 04-17-[address] SAMI ROSA Facility:[facility] Start: 04-10-2022 Adult health examination Sami Rosa Other [employer] Other Procedures Date Procedure Procedure Detail Performing Clinician Start: 12-23-2023 Duplex scan of lower limb veins DO Vargas Rosa Work Phone: Start: 11-26-2023 Screening mammography of bilateral breasts DO Sami Rosa Work Phone: Start: 08-13-2023 CT angiography of thorax DO Sami Zhao l Work Phone: Start: 11-25-2022 Screening mammography of bilateral breasts DO Sami Rosa Work Phone: Start: 05-13-2022 Esophagogastroduodenoscopy DO Sami B all Work Phone: Start: 01-26-2019 Screening for malignant neoplasm of colon Sami Moe Other Depression screening Alberto n oMe Other Depression screening Alberto n Moe Other Screening for malign ant neoplasm of breast Sami Ball Other Screening for malign ant neoplasm of breast Sami Ball Other Plan of Treatment Date Care Activity Detail Author Start: 12-23-2023 Duplex scan of lower limb veins US venous duplex LE RT [facility] Start: 12-23-2023 US Lower extremity v ein - right [facility] Start: 11-04-2023 End: 11-04-2023 Patient encounter procedure 11/04/2023 2:15 PM EST Office Visit [facility] [address] [place] [address] Pan Granados, DO [address] [place] [address] Arrived [facility] Comment on above: Arrived Start: 05-29-2023 Influenza vaccination Influenz a Vaccine (#1) [facility] Start: 05-13-2022 [facility] Work Phone: Start: 2006 Screening for malign ant neoplasm of breast Mammogram [facility] Start: 1996 Screening for malign ant neoplasm of cervix [facility] Start: 1987 Screening for malign ant neoplasm of cervix Pap Smear [facility] Start: 1966 Screening for malign ant neoplasm of colon [facility] US Lower extremity v ein - right [facility] Immunizations Immunization Date Immunization Notes Care Provider Fa cility 09-17-2023 tetanus toxoid, redu major diphtheria toxoid, and acellular pertussis vaccine, adsorbed Sami Ball Other [facility] 02-18-2022 COVID-19 Comirnaty (Pfizer) Tri-Sucrose 12+ DO Sami Ball Work Phone: [facility] 02-18-2022 COVID-19 mRNA, Comirnaty (Pfizer) DO Sami Ball Work Phone: [facility] 08-06-2021 COVID-19 mRNA, Comirnaty (Pfizer) DO Sami Ball Work Phone: [facility] 11-06-2020 COVID-19 mRNA, Comirnaty (Pfizer) DO Sami Rosa Work Phone: [facility] 10-16-2020 COVID-19 mRNA, Comirnaty (Pfizer) DO Sami Rosa Work Phone: [facility] Payers Date Payer Category Payer Self-pay [id number] 2022 Blue [employer] Blue Shield [id number] 2022 Unknown BCBS BCBS xxxxxx [id number] 2022-Present [phone] [address] [place] [address] [id number] 1966 Unknown [id number] 3 1966 Unknown [id number] 3 1966 Unknown [id number] 3 1966 Unknown [id number] 59 1966 Unknown [id number] 59 1966 Unknown [id number] 59 1959 Unknown [id number] Unknown [employer] [id number] Unknown [id number] 1 Unknown [id number] 1 Unknown [id number] 1 Unknown [id number] 1 Social History Date Type Detail Facility Tobacco smoking status NHIS Unknown if ever smoked [facility] Work Phone: Start: 1965 Sex Assigned At Female F [facility] Start: 05-11-2023 Sex Assigned At N [facility] [employer] Other Start: 04-27-2023 Tobacco smoking status NHIS Occasional tobacco smoker [facility] History of tobacco use Cigarette Smoker [facility] Start: 04-27-2023 Tobacco use and exposure Smokeless tobacco non-user [facility] Start: 05-11-2023 History of Social function [facility] Start: 1965 Sex Assigned At Not on file [facility] Start: 12-07-2023 End: 12-07-2023 Tobacco smoking status NHIS Never smoked tobacco (finding) [facility] Goals Date Patient Goal Desired Activity /State Clinical Notes 05-13-2022 to 11-06-2023 Note Date & Type Note Facility 11-06-2023 Evaluation note Encounter Date Diagnosis Assessment Notes Oct, Pernicious anemia (ICD-10 - D51.0) [facility] [employer] Other [id number] Evaluation note* Encounter Date Diagnosis Assessment Notes Treatment Notes Treatment Clinical Notes Aug, COVID-19 (ICD-10 - U07.1) Instructed to use Robitussin or Mucinex for cough, saline or Flonase NS for congestion, Tylenol for pain and fever. Self isolate at home. - Cannot work - avoid contact with others - avoid pets - wipe counters, door knobs if touched - if can't avoid leaving home, must wear mask to protect others - need to stay isolated for 10 days from onset of symptoms - to discontinue isolation must be 5 days AND must be without fever for 24 hours AND symptoms must be improving. Always wear a mask in public places for complete 10 days Aug, Essential hypertension (ICD-10 - I10) Avoid decongestant use. No medication on hold [employer] Other 12-21-2023 Evaluation note* Encounter Date Diagnosis Assessment Notes Treatment Notes Treatment Clinical Notes Aug, Laceration without foreign body of unspecified finger without damage to nail, initial encounter (ICD-10 - S61.219A) Cleanse w/ soap and water. Apply Mupirocin bid Adacel injection ER or call office w/ increased pain or drainage Aug, Cellulitis of finger of right hand (ICD-10 - L03.011) Begin systemic antibiotics - Doxycycline sent to Mupirocin bid [employer] Other 11-29-2023 Evaluation note* Encounter Date Diagnosis Assessment Notes Treatment Notes Treatment Clinical Notes Jul, Pernicious anemia (ICD-10 - D51.0) [employer] Other 10-25-2023 Evaluation note* Encounter Date Diagnosis Assessment Notes Treatment Notes Treatment Clinical Notes Jun, Pernicious anemia (ICD-10 - D51.0) [employer] Other 10-20-2023 Evaluation note* Encounter Date Diagnosis Assessment Notes Treatment Notes Treatment Clinical Notes Jun, Essential hypertension (ICD-10 - I10) This patient is instructed to consume a healthy, low-fat, low-salt diet. They are also encouraged to continue exercise to achieve/maintain a normal BMI. Stopped Amlodipine (would like aggravate orthostatic symptoms) Continue Losartan w/ normal home BP Jun, Orthostatic hypotension (ICD-10 - I95.1) Postprandial hypotension - associated w/ B12 deficiency - associated w/ IFG Thought to be due to blood pooling in splanchnic vessels Treatment is unknown Avoid dehydration Avoid vasodilators Small, more frequent meals Jun, IFG (impaired fasting glucose) (ICD-10 - R73.01) Elevate FBS and 2hPPBS Healthy diet, exercise and weight loss A1C Jun, Pernicious anemia (ICD-10 - D51.0) Continue B12 supplement. Reassure that treatment prevents progression Jun, Cigarette nicotine dependence without complication (ICD-10 - F17.210) This patient has been encouraged to quit tobacco use immediately. They are aware of the hazards associated with tobacco use, including but not limited to respiratory infections, vascular disease and cancers. Jun, Hypoglycemia (ICD-10 - E16.2) Balanced, high fiber/protein diet Between meal protein snacks Avoid simple sugars Jun, Fatigue, unspecified type (ICD-10 - R53.83) Healthy diet and exercise Check labs: A1C and TSH [employer] Other 09-22-2023 Evaluation note* Encounter Date Diagnosis Assessment Notes Treatment Notes Treatment Clinical Notes May, Pernicious anemia (ICD-10 - D51.0) [employer] Other 08-31-2023 Evaluation note* Encounter Date Diagnosis Assessment Notes Treatment Notes Treatment Clinical Notes Apr, Essential hypertension (ICD-10 - I10) This patient is instructed to consume a healthy, low-fat, low-salt diet. They are also encouraged to continue exercise to achieve/maintain a normal BMI. Apr, Wellness examination (ICD-10 - Z00.00) Healthy diet and exercise. Reviewed age-appropriate preventive testing recommended. Apr, Mild intermittent asthma with acute exacerbation (ICD-10 - J45.21) Symptoms controlled w/ antihistamines. Instructed to continue w/ Flonase for rhinorrhea Apr, History of PSVT (paroxysmal supraventricular tachycardia) (ICD-10 - Z86.79) Healthy diet, exercise and avoid stimlulants. Apr, Pernicious anemia (ICD-10 - D51.0) Continue B12 supplements. Stressed that must be SL Aware of the adverse influence w/ RBC formation/anemia and nerve function Apr, Elevated cholesterol (ICD-10 - E78.00) Intolerant to 2 different statins Instructed on diet and exercise.Discussed the beneficial effects of lowering cholesterol in reducing the risk for cerebrovascular and cardiovascular disease. Apr, Cigarette nicotine dependence without complication (ICD-10 - F17.210) This patient has been encouraged to quit tobacco use immediately. They are aware of the hazards associated with tobacco use, including but not limited to respiratory infections, vascular disease and cancers. [employer] Other 08-15-2023 Evaluation note* Encounter Date Diagnosis Assessment Notes Treatment Notes Treatment Clinical Notes Apr, Pernicious anemia (ICD-10 - D51.0) [employer] Other 05-31-2023 Evaluation note* Encounter Date Diagnosis Assessment Notes Treatment Notes Treatment Clinical Notes January, Pernicious anemia (ICD-10 - D51.0) [employer] Other 03-20-2023 Evaluation note* Encounter Date Diagnosis Assessment Notes Treatment Notes Treatment Clinical Notes Nov, Acute bronchitis due to other specified organisms (ICD-10 - J20.8) [employer] Other 03-13-2023 Evaluation note* Encounter Date Diagnosis Assessment Notes Treatment Notes Treatment Clinical Notes Nov, Acute bronchitis due to other specified organisms (ICD-10 - J20.8) Instructed to use Robitussin or Mucinex for cough, saline or Flonase NS for congestion, Tylenol for pain and fever. Nov, Mild intermittent asthma with acute exacerbation (ICD-10 - J45.21) Continue rest and push fluids. Unable to tolerate LACHELLE [employer] Other 03-07-2023 Evaluation note* Encounter Date Diagnosis Assessment Notes Treatment Notes Treatment Clinical Notes Nov, Pernicious anemia (ICD-10 - D51.0) [employer] Other 01-12-2023 Evaluation note* Encounter Date Diagnosis Assessment Notes Treatment Notes Treatment Clinical Notes Sep, Acute non-recurrent maxillary sinusitis (ICD-10 - J01.00) Instructed to use Robitussin or Mucinex for cough, saline or Flonase NS for congestion, Tylenol for pain and fever. Sep, Mild intermittent asthma with acute exacerbation (ICD-10 - J45.21) LACHELLE not utilized due to tendency to develop palpitations Sep, Essential hypertension (ICD-10 - I10) This patient is instructed to consume a healthy, low-fat, low-salt diet. They are also encouraged to continue exercise to achieve/maintain a normal BMI. Stressed importance to achieve BP readings < 135/85 to reduce risk for future strokes and heart attacks. [employer] Other 01-03-2023 Evaluation note* Encounter Date Diagnosis Assessment Notes Treatment Notes Treatment Clinical Notes Sep, Pernicious anemia (ICD-10 - D51.0) [facility] [employer] Other 08-16-2022 [facility]Evaluation [facility]* Diagnosis Onset Date Resolution Status GERD (gastroesophageal reflux disease) acute [facility] Work Phone: Evaluation noteNo assessment information available [facility] Work Phone: Evaluation noteNo InformationNortUniversity [facility] [employer] Other Evaluation note* Diagnosis Onset Date Resolution Status Bronchitis acute Pernicious anemia acute Calf pain acute Localized warmth of skin acu te Right leg swelling acute [facility] Work Phone: Evaluation note* Diagnosis Onset Date Resolution Status Bronchitis acute Pernicious anemia acute Calf pain acute Localized warmth of skin acu te Right foot pain acute Right leg swelling acute [facility] Work Phone: Evaluation note* Diagnosis Onset Date Resolution Status Calf pain acute Localized warmth of skin acu te Right foot pain acute Right leg swelling acute [facility] Work Phone: Evaluation note* Diagnosis Onset Date Resolution Status Chronic bronchitis acute Cigarette nicotine dependence without complication acute Essential hypertension acute GERD (gastroesophageal reflux disease) acute History of PSVT (paroxysmal supraventricular tachycardia) acute Screening mammogram for breast cancer acute Wellness examination acute [facility] Work Phone: Evaluation note* Diagnosis Onset Date Resolution Status Chronic bronchitis acute Cigarette nicotine dependence without complication acute Essential hypertension acute GERD (gastroesophageal reflux disease) acute History of PSVT (paroxysmal supraventricular tachycardia) acute Screening mammogram for breast cancer acute Wellness examination acute Bronchitis acute [facility] Work Phone: History general Narrative - Reported* Type Description Date Medical History Pernicious anemia Medical History Pure hypercholesterolemia Medical History Mild intermittent asthma with ac [place] exacerbation Medical History COVID-19 Medical History Nicotine dependence, cigarettes, uncomplicated Medical History Cramps, extremity Medical History Paresthesia Medical History Essential hypertension Medical History Gastroesophageal ref lux disease with esophagitis without hemorrhage Medical History History of PSVT (par oxysmal supraventricular tachycardia) Medical History Depression screening Medical History Encounter for screening breast e xamination Medical History Tobacco user Medical History Macrocytosis without anemia Surgical History COLONOSCOPY Surgical History EGD Surgical History FRANK/BSO ABLATION 05/2014 Surgical History TONSILLECTOMY/ADENOIDECTOMY 2015 Hospitalization History see surgical history [employer] Other Chief Complaint and Reason for Visit Chief Complaint GERD, Screening GERD, Screening Reason for Visit GERD (gastroesophage al reflux disease) Chief Complaint Screening Chief Complaint CBC Chief Complaint CBC r07.2 r06.09 z72.0 Chief Complaint Screening Bronchitis possible blood clot - right leg Reason for Visit Bronchitis Pernicious anemia Calf pain Localized warmth of skin Right leg swelling Chief Complaint Screening Bronchitis possible blood clot - right leg M79.89 M79.669 R23.8 Reason for Visit Bronchitis Pernicious anemia Calf pain Localized warmth of skin Right foot pain Right leg swelling Chief Complaint Screening Bronchitis possible blood clot - right leg M79.89 M79.669 R23.8 b12 Reason for Visit Bronchitis Pernicious anemia Calf pain Localized warmth of skin Right foot pain Right leg swelling Chief Complaint Screening Bronchitis possible blood clot - right leg M79.89 M79.669 R23.8 b12 B12 Reason for Visit Bronchitis Pernicious anemia Calf pain Localized warmth of skin Right foot pain Right leg swelling Chief Complaint possible blood clot - right leg M79.89 M79.669 R23.8 b12 B12 B12 Shot Reason for Visit Calf pain Localized warmth of skin Right foot pain Right leg swelling Chief Complaint B12 B12 Shot B12 Shot Chief Complaint B12 Shot B12 Shot B12 Shot Chief Complaint B12 Shot B12 Shot wellness Reason for Visit Chronic bronchitis Cigarette nicotine dependence without complication Essential hypertension GERD (gastroesophageal reflux disease) History of PSVT (paroxysmal supraventricular tachycardia) Screening mammogram for breast cancer Wellness examination Chief Complaint B12 Shot B12 Shot wellness b12 shot Reason for Visit Chronic bronchitis Cigarette nicotine dependence without complication Essential hypertension GERD (gastroesophageal reflux disease) History of PSVT (paroxysmal supraventricular tachycardia) Screening mammogram for breast cancer Wellness examination Chief Complaint B12 Shot wellness b12 shot B12 Shot Reason for Visit Chronic bronchitis Cigarette nicotine dependence without complication Essential hypertension GERD (gastroesophageal reflux disease) History of PSVT (paroxysmal supraventricular tachycardia) Screening mammogram for breast cancer Wellness examination Chief Complaint B12 Shot wellness b12 shot B12 Shot Sore Throat,Wheezing,COVID- Reason for Visit Chronic bronchitis Cigarette nicotine dependence without complication Essential hypertension GERD (gastroesophageal reflux disease) History of PSVT (paroxysmal supraventricular tachycardia) Screening mammogram for breast cancer Wellness examination Bronchitis Advance Directives Advance Directive Response Recorded Date/ Time Advance Directives No May 07, 2020 12:09pm Advance Directive Response Recorded Date/ Time Advance Directives No May 07, 2020 11:09am Summary Purpose Family History Relationship Condition Age at Onset Recorded Date/T abram father Unknown Additional Source Comments Care Teams (unrecognized sec tion and content) Team Status: Active Member Role Status Dates Sami Rosa DO Primary Care Provider Active Team Status: Inactive Member Role Status Dates Sami Rosa DO Primary Care Provider Active Start: November 26, 2023 End: November 26, 2023 Pan Granados DO Attending Provider Active Sta rt: November 26, 2023 End: November 26, 2023 Team Status: Inactive Member Role Status Dates Sami Rosa DO Primary Care Provider Active Start: December 07, 2023 End: December 07, 2023 Lauryn Patel APRN NP-C Attending Provider Act avelino Start: December 07, 2023 End: December 07, 2023 Team Status: Inactive Member Role Status Dates Sami Rosa DO Primary Care Provider Active Start: December 23, 2023 End: December 23, 2023 HOLGER Del Angel Attending Provider Act avelino Start: December 23, 2023 End: December 23, 2023 Team Status: Active Member Role Status Dates Provider Conversion Attending Provider Active St art: September 25, 2023 Team Status: Inactive Member Role Status Dates Sami Rosa DO Primary Care Provider Active Marko Lam MD Attending Provider Active Team Status: Inactive Member Role Status Dates Sami Rosa DO Primary Care Provider, Referring Pr ovider Active Referral Self Attending Provider Active Team Status: Inactive Member Role Status Dates Sami Rosa DO Primary Care Provider Active [employer] [employer] Attending Provider Active Team Status: Inactive Member Role Status Dates Sami Rosa DO Primary Care Provider, Attending Pr ovider Active [employer]ature [employer] Builder Relationship Specialty Start Date End Date Sami Rosa MD [address] [place] [id number] PCP - General Internal Medicine 11/04/23 Team Status: Inactive Member Role Status Dates Sami Rosa DO Primary Care Provide r, Attending Provider Active Start: January 08, 2024 End: January 08, 2024 Team Status: Inactive Member Role Status Dates Sami Rosa DO Primary Care Provide r, Attending Provider Active Start: February 08, 2024 End: February 08, 2024 Team Status: Inactive Member Role Status Dates Sami Rosa DO Primary Care Provider Active Start: March 17, 2024 End: March 17, 2024 Noemi Ash MD Attending Provider Active St art: March 17, 2024 End: March 17, 2024 Team Status: Inactive Member Role Status Dates Sami Rosa DO Primary Care Provide r, Attending Provider Active Start: April 19, 2024 End: April 19, 2024 Team Status: Inactive Member Role Status Dates Sami Rosa DO Primary Care Provide r, Attending Provider Active Start: May 27, 2024 End: May 27, 2024 Team Status: Inactive Member Role Status Dates Sami Rosa DO Primary Care Provide r, Attending Provider Active Start: June 24, 2024 End: June 24, 2024 Team Status: Inactive Member Role Status Dates Sami Rosa DO Primary Care Provide r, Attending Provider Active Start: July 01, 2024 End: July 01, 2024 Team Status: Inactive Member Role Status Dates Sami Rosa DO Primary Care Provide r, Attending Provider Active Start: August 02, 2024 End: August 02, 2024 Team Status: Inactive Member Role Status Dates Sami Rosa DO Primary Care Provider Active Start: August 03, 2024 End: August 03, 2024 Lauryn Patel APRN [employer]PER[employer]-C Attending Provider Active Start: August 03, 2024 End: August 03, 2024 INFORMATION SOURCE (unrecogn ized section and content) DATE CREATED AUTHOR 07/07/2022 [facility] DATE CREATED AUTHOR AUTHOR'S ORGANIZ ATION 12/25/2023 [facility] DATE CREATED AUTHOR AUTHOR'S ORGANIZ ATION 01/04/2024 [facility] DATE CREATED AUTHOR AUTHOR'S ORGANIZ ATION 01/08/2024 [facility] EPIC REASON FOR VISIT (unrecogniz ed section and content) B-12 Shotear painB-12 ShotFe louisa, Chest Congestion, COVID NegativeUpdateNo InformationB-12 ShotB-12 ShotWellnessB-12 ShotLab resultsconcernnot feeling well after eatingB-12 [id number] ON FINGER THAT IS INFECTEDCOVID + [phone]-12 SHOT Goals (unrecognized section and content) Goals may be documented in a n alternate section FOR RECORDS PERTAINING TO PATIENTS WHO ARE OR HAVE BEEN ENROLLED IN A CHEMICAL DEPENDENCY/SUBSTANCEABUSE PROGRAM, SOME INFORMATION MAY BE OMITTED. This clinical summary was aggregated from multiple sources. Caution should be exercised in using it in the provision of clinical care. This summary normalizes information from multiple sources, and as a consequence, information in this document may materially change the coding, format and clinical context of patient data. In addition, data may be omitted in some cases. CLINICAL DECISIONS SHOULD BE BASED ON THE PRIMARY CLINICAL RECORDS. [facility]. provides no warranty or guarantee of the accuracy or completeness of information in this document.
--- NOTE | 2024-09-12 12:57 | XR_ITS ---
The [address] [address] Patient Name: TOBIN CUNNINGHAM MRN: [id number] date: 1965 Sex: F Assigned Patient Location: [facility] Current Patient Location: Accession/Order Number: [id number] Exam Date: 09/12/2024 13:05 Report Date: 09/13/2024 09:05 At the request of: BRYON VUONG Procedure: XR knee LT 4V PROCEDURE: XR knee LT 4V COMPARISON: None. HISTORY: Left Knee Pain FINDINGS: BONES:No acute fracture or dislocation. Mild to moderate osteoarthropathy with marginal osteophyte formation in the medial compartment. SOFT TISSUES:Negative. No visible soft tissue swelling. EFFUSION:None visible. OTHER: Negative. XR/XR knee LT 4V IMPRESSION: Mild to moderate medial compartment osteoarthritis Electronically authenticated by: DAYNE HAYDEN Date: 09/13/2024 09:05
== END 2024-09-12 12:46 | disposition home or self-care (01) ==
LOC: RAD 12:47
PROVIDERS: PCP Internal Medicine; Visit Provider Internal Medicine
DX: M25.562 Pain in left knee (principal); M17.12 Unilateral primary osteoarthritis, left knee
CPT/HCPCS: 73564